=== PATIENT | female | born 1925 | race Caucasian/White ===

== ENCOUNTER → 2016-05-06 | Outpatient (CLI) | payer MEDICARE, MEDICAID ==
[~2016-05-06] MED LIST: AMLO10TA2 PO; GABA100C8 PO; HYDR-3240 PO; LISI-170 PO; METH4TAB PO; TRAM50TA2 PO; UNK BP MED; ZOLP-413 PO
== END | disposition home or self-care (01) ==
LOC: CFH 15:12
PROVIDERS: ATTEND Family Medicine
DX: R31.9 Hematuria, unspecified (principal)
CPT/HCPCS: 76770

== ENCOUNTER → 2016-12-02 | Outpatient (CLI) | payer MEDICARE, MEDICAID ==
[~2016-12-02] MED LIST changes: +GABA-826 PO; -GABA100C8 PO
== END | disposition home or self-care (01) ==
LOC: CFH 14:57
PROVIDERS: ATTEND Family Medicine
DX: M79.89 Other specified soft tissue disorders (principal); L03.116 Cellulitis of left lower limb

== ENCOUNTER 2017-05-14 10:58 | Inpatient (IN) | payer MEDICARE, MEDICAID ==
[~2017-05-14] VITALS: Ht 157.5 cm; Wt 74.9 kg
[2017-05-14] MEDS ORDERED: ASPIRIN 81 MG TABLET CHEW ONE (11:54)
[2017-05-14] MEDS ORDERED: ONDANSETRON ODT 4 MG ONE (11:54)
[2017-05-14] MEDS ORDERED: ONDANSETRON ODT 4 MG PO ONE (12:00)
[2017-05-14] MEDS ORDERED: ASPIRIN 81 MG TABLET CHEW PO ONE (12:00)
[2017-05-14] MEDS ORDERED: SODIUM CHLORIDE FLUSH 10ML SYR IVF ONE (12:00)
[2017-05-14 12:11] LABS: BASOPHILS # (AUTO) 0.03 x10^3/uL (0-0.1); BASOPHILS % (AUTO) 0 % (0-1); EOSINOPHILS # (AUTO) 0.09 x10^3/uL (0-0.4); EOSINOPHILS % (AUTO) 1 % (1-7); LYMPHOCYTES # (AUTO) 1.06 x10^3/uL (1-3.4); LYMPHOCYTES % (AUTO) 14 % (22-44); MD NO; MEAN CORPUSCULAR HEMOGLOBIN 32.6 pg (27.0-34.8); MEAN CORPUSCULAR HGB CONC 34.2 g/dL (32.4-35.8); MEAN CORPUSCULAR VOLUME 95.5 fL (80-100); MEAN PLATELET VOLUME 8.3 fL (7.4-10.4); MONOCYTES # (AUTO) 0.45 x10^3/uL (0.2-0.8); MONOCYTES % (AUTO) 6 % (2-9); NEUTROPHILS # (AUTO) 6.11 x10^3/uL (1.8-6.8); NEUTROPHILS % (AUTO) 79 % (42-75); PLATELET COUNT 249 x10^3/uL (130-400); RED CELL DISTRIBUTION WIDTH 12.6 % (9.6-15.2)
[2017-05-14 12:16] LABS: ALBUMIN 3.6 g/dL (3.4-5.0); ANION GAP 9 mmol/L (5-15); CALCIUM 8.5 mg/dL (8.5-10.1); CHLORIDE 107 mmol/L (98-107)
[2017-05-14 12:24] LABS: ALANINE AMINOTRANSFERASE 19 U/L (12-78); ALKALINE PHOSPHATASE 127 U/L (45-117); BILIRUBIN,TOTAL 0.9 mg/dL (0.2-1.0); CREATININE 0.88 mg/dL (0.55-1.02); TOTAL PROTEIN 7.4 g/dL (6.4-8.2); TROPONIN I < 0.015 ng/mL (0.000-0.045)
[2017-05-14] MEDS ORDERED: CLON0.1T PO (13:27)
[2017-05-14] MEDS ORDERED: LISI-170 PO (13:27)
[2017-05-14] MEDS ORDERED: METO25TA91 PO (13:27)
[2017-05-14] MEDS ORDERED: ZOLP5TAB6 PO (13:27)
[2017-05-14] MEDS ORDERED: ASPI-496 PO (14:01)
[2017-05-14 14:22] VITALS: BP 189/92
[2017-05-14] MEDS ORDERED: MORPHINE SULFATE 4 MG/ML, 1ML IVPush PRN (15:30)
[2017-05-14] MEDS ORDERED: ONDANSETRON 2MG/ML, 2ML IVPush PRN (15:30)
[2017-05-14] MEDS ORDERED: HYDROcodone/APAP 5/325 TABLET PO PRN (15:30)
[2017-05-14] MEDS ORDERED: ACETAMINOPHEN 325 MG TABLET PO PRN (15:30)
[2017-05-14] MEDS ORDERED: NITROGLYCERIN 0.4 MG BOTTLE (25 TABS) SL PRN (15:30)
[2017-05-14] MEDS ORDERED: BISACODYL 10 MG SUPP PR PRN (15:30)
[2017-05-14] MEDS ORDERED: ONDANSETRON ODT 4 MG PO PRN (15:30)
[2017-05-14] MEDS ORDERED: SENN-87 PO (16:24)
[2017-05-14 17:48] LABS: TROPONIN I < 0.015 ng/mL (0.000-0.045)
[2017-05-14 19:20] VITALS: BP 133/75
[2017-05-14] MEDS: SODIUM CHLORIDE FLUSH 10ML SYR IVF SCH (20:26)
[2017-05-14] MEDS ORDERED: ZOLPIDEM 5MG TABLET PO SCH (21:00)
[2017-05-14] MEDS ORDERED: LISINOPRIL 20 MG TABLET PO SCH (21:00)
[2017-05-15 02:14] VITALS: BP 113/70
[2017-05-15 05:33] LABS: BASOPHILS # (AUTO) 0.02 x10^3/uL (0-0.1); BASOPHILS % (AUTO) 0 % (0-1); EOSINOPHILS % (AUTO) 3 % (1-7); LYMPHOCYTES # (AUTO) 2.01 x10^3/uL (1-3.4); LYMPHOCYTES % (AUTO) 31 % (22-44); MD NO; MEAN CORPUSCULAR HEMOGLOBIN 32.7 pg (27.0-34.8); MEAN CORPUSCULAR HGB CONC 34.2 g/dL (32.4-35.8); MEAN CORPUSCULAR VOLUME 95.6 fL (80-100); MEAN PLATELET VOLUME 8.1 fL (7.4-10.4); MONOCYTES # (AUTO) 0.65 x10^3/uL (0.2-0.8); MONOCYTES % (AUTO) 10 % (2-9); NEUTROPHILS # (AUTO) 3.56 x10^3/uL (1.8-6.8); NEUTROPHILS % (AUTO) 55 % (42-75); PLATELET COUNT 235 x10^3/uL (130-400); RED CELL DISTRIBUTION WIDTH 12.7 % (9.6-15.2)
[2017-05-15 05:42] LABS: CHLORIDE 99 mmol/L (98-107)
[2017-05-15] MEDS ORDERED: ASPIRIN 325 MG TABLET EC PO SCH (06:00)
[2017-05-15 06:04] LABS: ALANINE AMINOTRANSFERASE 15 U/L (12-78); ALBUMIN 2.9 g/dL (3.4-5.0); ALKALINE PHOSPHATASE 108 U/L (45-117); ANION GAP 8 mmol/L (5-15); BILIRUBIN,TOTAL 0.8 mg/dL (0.2-1.0); CALCIUM 8.2 mg/dL (8.5-10.1); CREATININE 0.92 mg/dL (0.55-1.02); THYROID STIMULATING HORMONE 0.962 mIU/L (0.358-3.740); TOTAL PROTEIN 6.1 g/dL (6.4-8.2)
[2017-05-15 07:29] VITALS: BP 104/60
[2017-05-15] MEDS ORDERED: PANTOPROZOLE 40MG TABLET PO SCH (07:30)
[2017-05-15] MEDS ORDERED: REGADENOSON 0.4 MG/5 ML SYRINGE ONE (08:15)
[2017-05-15] MEDS: SODIUM CHLORIDE FLUSH 10ML SYR IVF SCH (08:18)
[2017-05-15] MEDS ORDERED: METOPROLOL SUCCINATE 25 MG TAB.ER.24H PO SCH (09:00)
[2017-05-15] MEDS ORDERED: ASPIRIN 81 MG TABLET EC PO SCH (09:00)
[2017-05-15 14:11] VITALS: BP 101/56
== END 2017-05-15 17:30 | disposition home or self-care (01) | DRG 303 ==
LOC: ED 12:50 → EDIP 13:28 → 5SO 14:35
PROVIDERS: ADMIT Hospitalist; ATTEND Hospitalist
DX: I25.10 Atherosclerotic heart disease of native coronary artery without angina pectoris (principal); G89.29 Other chronic pain; M54.30 Sciatica, unspecified side; M54.9 Dorsalgia, unspecified; I10 Essential (primary) hypertension; Z90.710 Acquired absence of both cervix and uterus; Z82.49 Family history of ischemic heart disease and other diseases of the circulatory system; Z95.0 Presence of cardiac pacemaker; Z98.42 Cataract extraction status, left eye; Z98.41 Cataract extraction status, right eye
CPT/HCPCS: 36415; 71045; 78452; 80053; 84443; 84484; 85025; 93005; 93017; 99285; J2785; Q0162; A9502; C9898

== ENCOUNTER → 2017-06-08 | Outpatient (CLI) | payer MEDICARE, MEDICAID ==
[~2017-06-08] MED LIST changes: +ASPI-496 PO; +CLON0.1T PO; +METO25TA91 PO; +SENN-87 PO; +ZOLP5TAB6 PO
== END ==
LOC: CFH 07:17 → EDSTATUS 08:00
PROVIDERS: ATTEND Internal Medicine Cardiovascular Disease
DX: R11.2 Nausea with vomiting, unspecified (principal)
CPT/HCPCS: 76705